=== PATIENT | male | born 1960 | race Caucasian/White ===

== ENCOUNTER 2019-06-04 05:34 | Emergency (ER) | payer MEDICARE, OTHER ==
[2019-06-04] MEDS ORDERED: MORPHINE SULFATE 4 MG/ML SYRINGE IM STA (06:15)
[2019-06-04 06:18] VITALS: RESP 18
--- NOTE | 2019-06-04 06:21 | ED ---
General Adult HPI - General Chief complaint: Fall Stated complaint: Fall Time Seen by Provider: 06/04/19 06:03 Source: patient, RN notes reviewed Mode of arrival: ambulatory Limitations: no limitations - History of Present Illness Initial comments: 59-year-old male with a past medical history of hypertension, [place], CABG in 2013 currently on Plavix presents to the emergency department for a chief complaint of fall. Patient states yesterday he was walking to his house when he tripped over his shoe and fell into a table. Patient states the left side of his ribs hit the table. Patient did not have any lightheadedness or loss of consciousness prior to this fall. Denies any head injury or loss of consciousness after the fall. Patient states his pain is in the left anterior lower ribs. States it is very painful to move as well as take a deep breath. He denies any abdominal pain or any back pain. Patient denies any injury of the extremities or neck. Patient has no other complaints at this time including shortness of breath, chest pain, abdominal pain, nausea or vomiting, headache, or visual changes. - Related Data Home Medications Medication Instructions Recorded Confirmed Aspirin 325 mg PO DAILY 06/04/19 06/04/19 Vitamin E 180 mg PO DAILY 06/04/19 06/04/19 Previous Rx's Medication Instructions Recorded Lisinopril [Zestril] 2.5 mg PO DAILY #30 tab 02/09/14 Metoprolol Tartrate [Lopressor] 25 mg PO BID #60 tab 03/04/14 HYDROcodone/APAP 5-325MG [[place] 1 tab PO Q6HR PRN #12 tab 06/04/19 5-325] Lidocaine 5% Patch [Lidoderm 5% 1 patch TOPICAL DAILY PRN 5 Days 06/04/19 Patch] #5 patch Allergies Allergy/AdvReac Type Severity Reaction Status Date / Time FIBERGLASS Allergy Rash/Hives Uncoded 06/04/19 07:28 Review of Systems ROS Statement: Those systems with pertinent positive or pertinent negative responses have been documented in the HPI. ROS Other: All systems not noted in ROS Statement are negative. Past Medical History Past Medical History: Chest Pain / Angina, Hearing Disorder / Deafness, Hypertension, Myocardial Infarction ([place]) Additional Past Medical History / Comment(s): pt states " thought I had a panic attack in November but I guess I had a heart attack" RINGING IN LT EAR. Last Myocardial Infarction Date:: 11/2013 per pt History of Any Multi-Drug Resistant Organisms: None Reported Past Surgical History: Heart Catheterization Additional Past Surgical History / Comment(s): HEMORRHOIDECTOMY Past Anesthesia/Blood Transfusion Reactions: No Reported Reaction Past Psychological History: Depression, Panic Disorder Smoking Status: Current every day smoker Past Alcohol Use History: Daily Past Drug Use History: Marijuana - Past Family History Mother Family Medical History: Cancer Father Family Medical History: Myocardial Infarction ([place]) Brother(s) Family Medical History: Myocardial Infarction ([place]) Additional Family Medical History / Comment(s): 2 BROTHERS General Exam Limitations: no limitations General appearance: alert, in no apparent distress Head exam: Present: atraumatic, normocephalic, normal inspection Eye exam: Present: normal appearance, PERRL, EOMI. Absent: scleral icterus, conjunctival injection, periorbital swelling ENT exam: Present: normal exam, normal oropharynx, mucous membranes moist, TM's normal bilaterally, normal external ear exam Neck exam: Present: normal inspection, full ROM. Absent: tenderness, meningismus, lymphadenopathy Respiratory exam: Present: normal lung sounds bilaterally, chest wall tenderness (L anterior chest wall tenderness with small ecchymosis). Absent: respiratory distress, wheezes, rales, rhonchi, stridor Cardiovascular Exam: Present: regular rate, normal rhythm, normal heart sounds. Absent: systolic murmur, diastolic murmur, rubs, gallop, clicks GI/Abdominal exam: Present: soft, normal bowel sounds. Absent: distended, tenderness, guarding, rebound, rigid Neurological exam: Present: alert Course Vital Signs 06/04/19 06/04/19 06/04/19 05:44 06:17 07:03 Temperature 98.0 F 98.6 F 98.1 F Pulse Rate 118 H 103 H 88 Respiratory 20 18 18 Rate Blood Pressure 157/110 162/118 163/113 O2 Sat by Pulse 97 100 100 Oximetry Medical Decision Making - Medical Decision Making 59-year-old male presents for left rib pain after mechanical fall last night. Patient fell onto a table. Patient did not hit his head. Patient is hypertensive here in the emergency department however did not take his morning medication of lisinopril and metoprolol. These were given to him. Heart rate did improve throughout stay with pain treatment as well as metoprolol. On exam patient does have left anterior lower rib tenderness. X-ray of the left ribs with chest x-ray shows multiple left sided acute rib fractures of the sixth seventh and eighth ribs. No significant displacement. Patient is given pain medication. Discussed monitoring for symptoms of pneumonia and incentive spirometer given. Patient does not think he will be able to go to the pharmacy until tomorrow so will be given a Tylenol 3 starter pack. He will follow up with primary care in 1-2 days or return here if he has any worsening symptoms. I discussed this case with attending Dr. Piper who agrees with this assessment and treatment plan. Disposition Clinical Impression: Ribs, multiple fractures Disposition: HOME SELF-CARE Condition: Good Instructions (If sedation given, give patient instructions): Rib Fracture (ED) Additional Instructions: Please take Motrin and either Tylenol 3 or [place] for pain. Use incentives spirometer 10 times every hour. Use pillows splinting technique as discussed. Follow up with primary care in 1-2 days. Return to the emergency department if you have any worsening symptoms. Prescriptions: Lidocaine 5% Patch [Lidoderm 5% Patch] 1 patch TOPICAL DAILY PRN 5 Days #5 patch PRN Reason: Pain HYDROcodone/APAP 5-325MG [[place] 5-325] 1 tab PO Q6HR PRN #12 tab PRN Reason: Pain Is patient prescribed a controlled substance at d/c from ED?: Yes When asked, does pt state using other controlled substances?: No If prescribed controlled substance>3 days was MAPS reviewed?: Prescribed <3 Days If opioid is for acute pain is fill amount 7 days or less?: Yes If Rx opioid, was Start Talking consent form obtained?: Yes Referrals: Debbie Arnold MD [Primary Care Provider] - 1-2 days Time of Disposition: 07:52
[2019-06-04] MEDS ORDERED: METOPROLOL TARTRATE 25 MG TAB PO STA (06:40)
--- NOTE | 2019-06-04 06:46 | XR ---
EXAMINATION TYPE: XR ribs LT w pa chest xray DATE OF EXAM: 06/04/2019 COMPARISON: 03/04/2014 HISTORY: Rib pain TECHNIQUE: 5 views FINDINGS: Heart size is normal. There are sternal wires. There is a mild infiltrate at the lateral le ft lung base. There is no pneumothorax. There are fractures of the anterior left sixth and seventh an d eighth ribs. No significant displacement. Right lung is clear. There is very slight blunting left c ostophrenic angle. IMPRESSION: There is decreased left pleural fluid compared to old exam. Multiple lateral left side ac [place] rib fractures. No pneumothorax. No heart failure.
[2019-06-04 07:05] VITALS: TEMP 98.1
[2019-06-04] MEDS ORDERED: KETOROLAC 30 MG/ML 1 ML VIAL IM STA (07:45)
[2019-06-04 07:56] VITALS: BP 151/114; PULSE 68
[2019-06-04] MEDS ORDERED: ACET/COD 300 MG/30 MG STARTER PACK 6 TAB BTL PO STA (07:57)
[2019-06-04] MEDS ORDERED: IBUPROFEN 600 MG STARTER PACK 4 TAB BTL PO STA (07:57)
== END 2019-06-04 08:24 | disposition home or self-care (01) ==
LOC: EC 05:34
DX: S22.42XA Multiple fractures of ribs, left side, initial encounter for closed fracture (principal); I10 Essential (primary) hypertension; I25.2 Old myocardial infarction; F17.200 Nicotine dependence, unspecified, uncomplicated; Z79.82 Long term (current) use of aspirin; Z79.02 Long term (current) use of antithrombotics/antiplatelets; Z91.09 Other allergy status, other than to drugs and biological substances; Z95.1 Presence of aortocoronary bypass graft; W01.0XXA Fall on same level from slipping, tripping and stumbling without subsequent striking against object, initial encounter; Y93.01 Activity, walking, marching and hiking
CPT/HCPCS: 71101; 99283; 96372 ×2; J2270; J1885

== ENCOUNTER 2021-08-17 19:57 | Emergency (ER) | payer MEDICARE, OTHER ==
[2021-08-17] MEDS ORDERED: TOPICAL SKIN ADHESIVE 1 EACH AMP TOPICAL ONE (20:17)
--- NOTE | 2021-08-17 20:17 | ED ---
Wound/Laceration HPI - General Stated Complaint: Laceration: Right Index Finger - History of Present Illness Initial Comments: Mega is a xjufg-zvjs-gclwzfar Ten presents to the emergency department today for evaluation of laceration to left index finger. Patient reports that he was doing dishes when a cup broke and cut his finger. Patient immediately applied pressure but he is on blood thinner so he had continuous bleeding and came to the ER. Patient's tetanus was updated earlier today at an outpatient pharmacy appointment. - Related Data Home Medications Medication Instructions Recorded Confirmed Aspirin 325 mg PO DAILY 06/04/19 06/04/19 Vitamin E 180 mg PO DAILY 06/04/19 06/04/19 Previous Rx's Medication Instructions Recorded lisinopriL [Zestril] 2.5 mg PO DAILY #30 tab 02/09/14 Metoprolol Tartrate [Lopressor] 25 mg PO BID #60 tab 03/04/14 HYDROcodone/APAP 5-325MG [[place] 1 tab PO Q6HR PRN #12 tab 06/04/19 5-325] Lidocaine 5% Patch [Lidoderm 5% 1 patch TOPICAL DAILY PRN 5 Days 06/04/19 Patch] #5 patch Allergies Allergy/AdvReac Type Severity Reaction Status Date / Time FIBERGLASS Allergy Rash/Hives Uncoded 06/04/19 07:28 Review of Systems ROS Statement: Those systems with pertinent positive or pertinent negative responses have been documented in the HPI. ROS Other: All systems not noted in ROS Statement are negative. Past Medical History Past Medical History: Chest Pain / Angina, Hearing Disorder / Deafness, Hyperte nsion, Myocardial Infarction ([place]) Additional Past Medical History / Comment(s): pt states " thought I had a panic attack in November but I guess I had a heart attack" RINGING IN LT EAR. Last Myocardial Infarction Date:: 11/2013 per pt History of Any Multi-Drug Resistant Organisms: None Reported Past Surgical History: Heart Catheterization Additional Past Surgical History / Comment(s): HEMORRHOIDECTOMY Past Anesthesia/Blood Transfusion Reactions: No Reported Reaction Past Psychological History: Depression, Panic Disorder Past Alcohol Use History: Daily Past Drug Use History: Marijuana - Past Family History Mother Family Medical History: Cancer Father Family Medical History: Myocardial Infarction ([place]) Brother(s) Family Medical History: Myocardial Infarction ([place]) Additional Family Medical History / Comment(s): 2 BROTHERS General Exam - General Exam Comments Initial Comments: Physical Exam GENERAL: Patient is well-developed and well-nourished. Patient is nontoxic and well-hydrated and is in no distress. HENT: Normocephalic, Atraumatic. EYES: PERRL, EOMI PULMONARY: Unlabored respirations. CARDIOVASCULAR: RRR Warm and well perfused extremities ABDOMEN: Non-distended SKIN: Superficial V-shaped laceration on the lateral surface of the index finger : Deferred NEUROLOGIC: Alert and oriented Normal speech Normal gait MUSCULOSKELETAL: Moving all extremities with no apparent injury PSYCHIATRIC: No SI/HI Procedures - Laceration Laceration #1 Consent Obtained: verbal consent Indication: laceration Site: hand Size (cm): 2 Description: flap (V shaped) Depth: simple, single layer Pre-repair: wound explored Type of Sutures: other (Skin glue) Patient Tolerated Procedure: well, no complications Medical Decision Making - Medical Decision Making Patient was seen and evaluated, history is obtained from patient, patient has a laceration to his finger he is on aspirin bleeding was controlled with laceration was skin glue. Patient is up-to-date on tetanus Patient discharged home in stable condition Disposition Clinical Impression: Finger laceration Disposition: HOME SELF-CARE Condition: Stable Instructions (If sedation given, give patient instructions): Skin Adhesive Care (ED) Is patient prescribed a controlled substance at d/c from ED?: No Referrals: Debbie Arnold MD [Primary Care Provider] - 1-2 days
[2021-08-17 20:24] VITALS: BP 139/86; PULSE 113; RESP 20; TEMP 98.9
== END 2021-08-17 20:31 | disposition home or self-care (01) ==
LOC: EC 19:57
DX: S61.210A Laceration without foreign body of right index finger without damage to nail, initial encounter (principal); I10 Essential (primary) hypertension; I25.2 Old myocardial infarction; Z79.82 Long term (current) use of aspirin; Z91.09 Other allergy status, other than to drugs and biological substances; W26.8XXA Contact with other sharp object(s), not elsewhere classified, initial encounter; Y93.G3 Activity, cooking and baking
CPT/HCPCS: 12011; 99282

== ENCOUNTER 2023-01-09 08:48 | Emergency (ER) | payer MEDICARE ==
[2023-01-09] MEDS ORDERED: PANTOPRAZOLE 40 MG TABLET PO STA (10:07)
--- NOTE | 2023-01-09 10:11 | ED ---
ENT HPI - General Chief complaint: ENT Stated complaint: throat pain, abd pain Time Seen by Provider: 01/09/23 09:19 Source: patient, RN notes reviewed Mode of arrival: ambulatory Limitations: no limitations - History of Present Illness Initial comments: Patient is a 62-year-old male presenting to the emergency room for complaints of sore throat and epigastric pain ongoing for approximately 4-5 days that began after copious amounts of vomiting following an episode of binge drinking. He reports that he has not had any alcohol intake or vomiting since his initial episode. He reports that he has utilize [id number] and acid of Pepto-Bismol to help treat his symptoms. He reports that the medication helps but that his throat pain returns. He does report that he does have trouble chewing his food and occasional trouble swallowing larger food particles due to lack of teeth. He denies any difficulty swallowing at this time. He denies any chest pain, shortness of breath, abdominal pain not related to heartburn symptoms, diarrhea, headache, dizziness, fevers or chills. He has a past medical history significant for CAD, hypertension, and hard of hearing. - Related Data Home Medications Medication Instructions Recorded Confirmed Aspirin 325 mg PO DAILY 06/04/19 06/04/19 Vitamin E 180 mg PO DAILY 06/04/19 06/04/19 Previous Rx's Medication Instructions Recorded lisinopriL [Zestril] 2.5 mg PO DAILY #30 tab 02/09/14 Metoprolol Tartrate [Lopressor] 25 mg PO BID #60 tab 03/04/14 HYDROcodone/APAP 5-325MG [[place] 1 tab PO Q6HR PRN #12 tab 06/04/19 5-325] Lidocaine 5% Patch [Lidoderm 5% 1 patch TOPICAL DAILY PRN 5 Days 06/04/19 Patch] #5 patch Pantoprazole [Protonix] 40 mg PO DAILY 14 Days #14 tab 01/09/23 Allergies Allergy/AdvReac Type Severity Reaction Status Date / Time FIBERGLASS Allergy Rash/Hives Uncoded 01/09/23 09:05 Review of Systems ROS Statement: Those systems with pertinent positive or pertinent negative responses have been documented in the HPI. ROS Other: All systems not noted in ROS Statement are negative. Past Medical History Past Medical History: Chest Pain / Angina, Hearing Disorder / Deafness, Hypertension, Myocardial Infarction ([place]) Additional Past Medical History / Comment(s): pt states " thought I had a panic attack in November but I guess I had a heart attack" RINGING IN LT EAR. Last Myocardial Infarction Date:: 11/2013 per pt History of Any Multi-Drug Resistant Organisms: None Reported Past Surgical History: Heart Catheterization Additional Past Surgical History / Comment(s): HEMORRHOIDECTOMY Past Anesthesia/Blood Transfusion Reactions: No Reported Reaction Past Psychological History: Depression, Panic Disorder Past Alcohol Use History: Daily Past Drug Use History: Marijuana - Past Family History Mother Family Medical History: Cancer Father Family Medical History: Myocardial Infarction ([place]) Brother(s) Family Medical History: Myocardial Infarction ([place]) Additional Family Medical History / Comment(s): 2 BROTHERS General Exam Limitations: no limitations General appearance: alert, in no apparent distress Head exam: Present: atraumatic, normocephalic, normal inspection Eye exam: Present: normal appearance, PERRL, EOMI. Absent: scleral icterus, conjunctival injection, periorbital swelling ENT exam: Present: normal external ear exam, other (Endentureless, diffuse erythema near without edema, tonsillar enlargement or tonsillar exudate) Neck exam: Present: normal inspection. Absent: tenderness, meningismus, lymphadenopathy Respiratory exam: Present: normal lung sounds bilaterally. Absent: respiratory distress, wheezes, rales, rhonchi, stridor Cardiovascular Exam: Present: normal rhythm, tachycardia, normal heart sounds. Absent: systolic murmur, diastolic murmur, rubs, gallop GI/Abdominal exam: Present: soft, normal bowel sounds. Absent: distended, tenderness, guarding, rebound, rigid Rectal exam: Present: deferred Extremities exam: Present: normal inspection. Absent: pedal edema, joint swelling Back exam: Present: normal inspection Neurological exam: Present: alert, oriented X3, CN II-XII intact Psychiatric exam: Present: normal affect, normal mood Skin exam: Present: warm, dry, intact, normal color. Absent: rash Course Vital Signs 01/09/23 01/09/23 09:02 10:27 Temperature 98.5 F 98.4 F Pulse Rate 125 H 127 H Respiratory 18 16 Rate Blood Pressure 124/87 113/86 O2 Sat by Pulse 97 100 Oximetry Medical Decision Making - Medical Decision Making Was pt. sent in by a medical professional or institution (Dr., PA, METER TESTER, urgent care, hospital, or halfway...) When possible be specific @ -No Did you speak to anyone other than the patient for history (EMS, parent, family, police, friend...)? What history was obtained from this source @ -No Did you review nursing and triage notes (agree or disagree)? Why? @ -I reviewed and agree with nursing and triage notes Were old charts reviewed (outside hosp., previous admission, EMS record, old EKG, old radiological studies, urgent care reports/EKG's, halfway records)? Report findings @ -No old charts were reviewed Differential Diagnosis (chest pain, altered mental status, abdominal pain women, abdominal pain men, vaginal bleeding, weakness, fever, dyspnea, syncope, headache, dizziness, GI bleed, back pain, seizure, CVA, palpatations, mental health, musculoskeletal)? @ -Differential Abdominal Pain Men: Appendicitis, cholecystitis, diverticulosis, ischemic bowel, pancreatitis, hepatitis, UTI, gastroenteritis, AAA, incarcerated hernia, bowel obstruction, constipation, inflammatory bowel, hepatitis, peptic ulcer disease, splenic infarction, perforated viscus, testicular torsion, this is not meant to be an all-inclusive list EKG interpreted by me (3pts min.). @ -None done X-rays interpreted by me (1pt min.). @ -None done CT interpreted by me (1pt min.). @ -None done U/S interpreted by me (1pt. min.). @ -None done What testing was considered but not performed or refused? (CT, X-rays, U/S, labs)? Why? @ -None What meds were considered but not given or refused? Why? @ -None Did you discuss the management of the patient with other professionals (professionals i.e. PHANI Gottlieb, METER TESTER, lab, RT, psych nurse, licensed social worker, clubhouse attendant, teacher, electoral officer, mattress spring encaser)? Give summary @ -No Was smoking cessation discussed for >3mins.? @ -No Was critical care preformed (if so, how long)? @ -No Were there social determinants of health that impacted care today? How? (Homelessness, low income, unemployed, alcoholism, drug addiction, tr ansportation, low edu. Level, literacy, decrease access to med. care, alf, rehab)? @ -No Was there de-escalation of care discussed even if they declined (Discuss DNR or withdrawal of care, Hospice)? DNR status @ -No What co-morbidities impacted this encounter? (DM, HTN, Smoking, COPD, CAD, Cancer, CVA, ARF, Chemo, Hep., AIDS, mental health diagnosis, sleep apnea, morbid obesity)? @ -None Was patient admitted / discharged? Hospital course, mention meds given and route, prescriptions, significant lab abnormalities, going to OR and other pertinent info. @ -62-year-old male presenting to the emergency room with complaints of sore throat and epigastric pain which began after vomiting. Symptoms improved with [id number]-skw-ixovddq antacids but returned. Tachycardia also noted. No indication for diagnostic imaging or laboratory studies at this time. Will give IV fluid bolus of 1 L and morning blood pressure/heart rate medications and monitor response. Will also treat with Protonix for GERD. Heart rate improved after IV fluids and morning medications. No episodes of vomiting. Epigastric and sore throat pain 1 out of 10. Diagnosis and treatment recommendations reviewed with patient at length. Will place patient on PPI 2 weeks and advise follow-up with primary care provider. advised utilizing chemical blender to aspirate food if unable to obtain dentures to prevent injury to esophagus. Advised avoidance of spicy foods, highly acidic foods and alcohol. Will discharge home in stable condition on Protonix to treat GERD advising follow-up with primary care provider. Undiagnosed new problem with uncertain prognosis? @ -No Drug Therapy requiring intensive monitoring for toxicity (Heparin, Nitro, Insulin, Cardizem)? @ -No Were any procedures done? @ -No Diagnosis/symptom? @ -GERD Acute, or Chronic, or Acute on Chronic? @ -Acute on chronic Uncomplicated (without systemic symptoms) or Complicated (systemic symptoms)? @ -Uncomplicated Side effects of treatment? @ -No Exacerbation, Progression, or Severe Exacerbation? @ -No Poses a threat to life or bodily function? How? (Chest pain, USA, CT, pneumonia, PE, COPD, DKA, ARF, appy, cholecystitis, CVA, Diverticulitis, Homicidal, Suicidal, threat to staff... and all critical care pts) @ -No Case discussed with Dr. Segovia. Disposition Clinical Impression: GERD (gastroesophageal reflux disease) Disposition: HOME SELF-CARE Condition: Stable Instructions (If sedation given, give patient instructions): Diet for Stomach Ulcers and Gastritis (ED), GERD (Gastroesophageal Reflux Disease) (ED) Additional Instructions: Complete course of Protonix as present prescribed. Utilizing chemical blender to macerate your food is encouraged to avoid esophageal damage if unable to obtain dentures . Avoid acidic foods, spicy foods and alcohol intake. Please follow-up with your primary care provider. Please return to the Emergency Department if symptoms worsen or any other concerns. Prescriptions: Pantoprazole [Protonix] 40 mg PO DAILY 14 Days #14 tab Is patient prescribed a controlled substance at d/c from ED?: No Referrals: Debbie Arnold MD [Primary Care Provider] - 1-2 days Time of Disposition: 10:09
[2023-01-09 10:28] VITALS: RESP 16
[2023-01-09] MEDS ORDERED: SODIUM CHLORIDE 0.9% 1,000 ML IV STA (10:34)
[2023-01-09 11:36] VITALS: PULSE 77
[2023-01-09 12:12] VITALS: BP 139/82; TEMP 97.9
== END 2023-01-09 12:12 | disposition home or self-care (01) ==
LOC: EC 08:48
DX: K21.9 Gastro-esophageal reflux disease without esophagitis (principal); I10 Essential (primary) hypertension; I25.2 Old myocardial infarction; F12.90 Cannabis use, unspecified, uncomplicated; Z79.82 Long term (current) use of aspirin; Z91.09 Other allergy status, other than to drugs and biological substances
CPT/HCPCS: 96360; 99283

== ENCOUNTER → 2023-05-17 | Outpatient (CLI) | payer MEDICARE ==
--- NOTE | 2023-05-17 12:09 | XR ---
EXAMINATION TYPE: XR chest 2V DATE OF EXAM: 05/17/2023 COMPARISON: 03/04/2014 HISTORY: Protruding sternal wires TECHNIQUE: Frontal and lateral views of the chest are obtained. FINDINGS: There are sternal wires indicate prior sternotomy and CABG surgery. The lungs are clear of consolidative, interstitial or masslike density. There is no pleural effusion pleural thickening. Heart size normal. There is no pulmonary vascular congestion. The osseous structures are intact. IMPRESSION: Sternal wires and prior CABG surgery with no acute cardiopulmonary disease
== END | disposition home or self-care (01) ==
LOC: RADXRMAIN 10:32
PROVIDERS: ATTEND Surgery
DX: T81.89XD Other complications of procedures, not elsewhere classified, subsequent encounter (principal); Z95.1 Presence of aortocoronary bypass graft
CPT/HCPCS: 71046

== ENCOUNTER → 2023-05-31 | Outpatient (CLI) | payer MEDICARE ==
--- NOTE | 2023-06-01 09:56 | CT ---
EXAMINATION TYPE: CT chest wo con DATE OF EXAM: 05/31/2023 COMPARISON: None HISTORY: chest pain CT DLP: 166.5 mGycm. Automated Exposure Control for Dose Reduction was Utilized. TECHNIQUE: CT scan of the thorax is performed without IV contrast. FINDINGS: LUNGS: The lungs are grossly clear, there is no concerning parenchymal mass or nodule identified. T here is no pleural effusion or pneumothorax seen. The tracheobronchial tree is patent. Diffuse emphy sematous changes. Areas of interlobular septal thickening suggesting mild interstitial chronic lung d isease. There are subpleural micronodules measuring less than 3 mm which have a benign appearance. MEDIASTINUM: Lack of IV contrast is noted to limit evaluation for mediastinal and especially hilar ad enopathy. There are no definitive greater than 1 cm hilar or mediastinal lymph nodes. No cardiomega ly or pericardial effusion is seen. Median sternotomy changes are seen. There is no abnormal surround ing soft tissue laboratory changes or collection. Extensive coronary artery calcification. Atheroscle rotic change aorta. OTHER: 2 mm punctate calcification left kidney. There is a moderate hiatal hernia with esophageal wal l thickening correlating reflux esophagitis. Trace a clinical mass tear. IMPRESSION: 1. Diffuse emphysematous changes. 2. Post median sternotomy. No abnormal fluid accumulation or destructive changes seen adjacent to the sternotomy wires. 3. Nonobstructing 2 mm left renal calculus. 4. Moderate hiatal hernia correlate for reflux esophagitis.
== END | disposition home or self-care (01) ==
LOC: RADCTMAIN 17:10
PROVIDERS: ATTEND Thoracic Surgery (Cardiothoracic Vascular Surgery)
DX: Z01.818 Encounter for other preprocedural examination (principal); I25.10 Atherosclerotic heart disease of native coronary artery without angina pectoris; J43.9 Emphysema, unspecified; K44.9 Diaphragmatic hernia without obstruction or gangrene; N20.0 Calculus of kidney; R22.2 Localized swelling, mass and lump, trunk; Z98.890 Other specified postprocedural states
CPT/HCPCS: 71250

== ENCOUNTER 2023-06-09 07:51 | Day surgery (SDC) | payer MEDICARE ==
[~2023-06-09 07:51] MED LIST: DEXAMETHASONE SOD PHOSPHATE 4 MG/ML 1 ML VIAL IV ONE; HYDROmorphone 0.5 MG/0.5 ML SYRINGE IVP PRN; LACTATED RINGERS 1,000 ML IV SCH; MIDAZOLAM 2 MG/2 ML VIAL IV PRN; ONDANSETRON 4 MG/2 ML VIAL IVP ONE; SCOPOLAMINE 1 MG/72 HR PATCH TRANSDERM ONE
[2023-06-09 08:19] VITALS: RESP 16; TEMP 97.3
[2023-06-09 08:50] LABS: HGB 14.3 gm/dL (13.0-17.5); MCH 33.3 pg (25.0-35.0); MCHC 34.1 g/dL (31.0-37.0); MCV 97.8 fL (80.0-100.0); Mean Platelet Volume 7.2; Platelet Count 329 k/uL (150-450); RDW 12.6 % (11.5-15.5); WBC 10.5 k/uL (3.8-10.6)
[2023-06-09 09:02] LABS: ALT 27 U/L (4-49); AST 31 U/L (17-59); African American GFR (CKD) >90 (>60 ml/min/1.73 sqM); Albumin 4.5 g/dL (3.5-5.0); Alkaline Phosphatase 97 U/L (38-126); Anion Gap 16 mmol/L; Blood Urea Nitrogen 10 mg/dL (9-20); Carbon Dioxide 23 mmol/L (22-30); Chloride 100 mmol/L (98-107); Glucose 101 mg/dL (74-99); Non-African American GFR(CKD) 89 (>60 ml/min/1.73 sqM); Potassium 3.3 mmol/L (3.5-5.1); Sodium 139 mmol/L (137-145); Total Bilirubin 0.4 mg/dL (0.2-1.3); Total Protein 7.8 g/dL (6.3-8.2)
[2023-06-09] MEDS ORDERED: BUPIVACAINE (PF) 0.5% 30 ML VIAL SQ ONE ×2 (09:13)
[2023-06-09 10:09] VITALS: BP 152/82; PULSE 97
--- NOTE | 2023-07-13 07:33 | P.OP ---
Date of Procedure: 06/09/23 Preoperative Diagnosis: Sternal pain with recurrent abscess near first wire Postoperative Diagnosis: Same Procedure(s) Performed: Sternal wire removal Anesthesia: local Surgeon: Dylan Morel Estimated Blood Loss (ml): 10 Pathology: none sent Condition: stable Disposition: PACU Indications for Procedure: This patient is a 63 year-old male who had a CABG in the past who presented to the office with sternal pain near the top wire with recurrent abscess formation in the area. CT scan revealed the knot of the wire was lifted up. Operative Findings: Top wire with knot lifted up causing chronic abscess cavity in area. Description of Procedure: The patient was taken back to the operating room and placed in the supine position. He was not sedated. His chest was prepped and draped in the usual sterile fashion. Antibiotics were given and I infiltrated the skin near the top wire with 1% lidocaine. A 3cm incision was made and carried down to bone using electrocautery. The top wire was identified with knot turned up. It was cut and removed. The cavity was irrigated and wound closed in layers of vicryl and glue.
== END 2023-06-09 10:32 | disposition home or self-care (01) ==
LOC: OR 07:51
PROVIDERS: ATTEND Thoracic Surgery (Cardiothoracic Vascular Surgery)
DX: T82.6XXA Infection and inflammatory reaction due to cardiac valve prosthesis, initial encounter (principal); I25.10 Atherosclerotic heart disease of native coronary artery without angina pectoris; I25.2 Old myocardial infarction; I10 Essential (primary) hypertension; H91.90 Unspecified hearing loss, unspecified ear; Z79.82 Long term (current) use of aspirin; Z79.899 Other long term (current) drug therapy; Z95.1 Presence of aortocoronary bypass graft; Y83.8 Other surgical procedures as the cause of abnormal reaction of the patient, or of later complication, without mention of misadventure at the time of the procedure
CPT/HCPCS: 86900; 86901; 80053; 85027; 86850; 20680; J0690; J0665

== ENCOUNTER 2025-02-21 15:42 | Emergency (ER) | payer MEDICARE ==
--- NOTE | 2025-02-21 16:01 | ED ---
General Adult HPI - General Source: patient, RN notes reviewed Mode of arrival: ambulatory Limitations: no limitations <Delmer Wetzel - Last Filed: 02/21/25 15:59> <Napoleon Byrne - Last Filed: 02/27/25 18:13> - General Stated complaint: R hip pain, heartburn Time Seen by Provider: 02/21/25 15:49 - History of Present Illness Initial comments: Quick note 65-year-old male presents emergency department chief complaint of epigastric pain, heartburn. Patient states that pain is in his chest moving around. Patient states that he did drink quite heavily over the weekend. Patient states that he is a daily drinker. Complains of epigastric pain into his chest no headache currently. Patient also complains of right hip pain no trauma (Delmer Wetzel) 65-year-old male presenting with chief complaint of burning epigastric pain. Has been ongoing since the weekend when he drank quite heavily. Patient states he is not a daily drinker. He reports that the burning pain started in his upper abdomen and at times radiates up into his chest. States that it gets worse with lying flat or bending over. No nausea or vomiting. No difficulty breathing. She is also having some right hip pain. No injury or trauma. (Napoleon Byrne) - Related Data Home Medications Medication Instructions Recorded Confirmed Aspirin [Adult Low Dose Aspirin EC] 81 mg PO DAILY 06/02/23 06/09/23 Cholecalciferol [Vitamin D3 (25 25 mcg PO DAILY 06/02/23 06/09/23 Mcg = 1000 Iu)] Multivitamins, Thera [Multivitamin 1 tab PO DAILY 06/02/23 06/09/23 (formulary)] Trinidad-3 Fatty Acids [Trinidad-3] 1,000 mg PO DAILY 06/02/23 06/09/23 Previous Rx's Medication Instructions Recorded lisinopriL [Zestril] 2.5 mg PO DAILY #30 tab 02/09/14 Metoprolol Tartrate [Lopressor] 25 mg PO BID #60 tab 03/04/14 Acetaminophen Tab [Tylenol] 650 mg PO Q6H #90 tab 06/09/23 Omeprazole [PriLOSEC] 40 mg PO DAILY #20 cap 02/21/25 Allergies Allergy/AdvReac Type Severity Reaction Status Date / Time nickel AdvReac Rash/Hives Verified 06/09/23 08:12 FIBERGLASS Allergy Rash/Hives Uncoded 06/02/23 14:15 Review of Systems ROS Other: All systems not noted in ROS Statement are negative. <Delmer Wetzel - Last Filed: 02/21/25 15:59> ROS Other: All systems not noted in ROS Statement are negative. <Napoleon Byrne - Last Filed: 02/27/25 18:13> ROS Statement: Those systems with pertinent positive or pertinent negative responses have been documented in the HPI. Past Medical History Past Medical History: Chest Pain / Angina, Hearing Disorder / Deafness, Hypertension, Myocardial Infarction (MS) Additional Past Medical History / Comment(s): tinnitus Last Myocardial Infarction Date:: 11/2013 per pt History of Any Multi-Drug Resistant Organisms: None Reported Past Surgical History: Heart Catheterization Additional Past Surgical History / Comment(s): HEMORRHOIDECTOMY. 4 vessel CABG 2013 Past Anesthesia/Blood Transfusion Reactions: No Reported Reaction Past Psychological History: No Psychological Hx Reported Additional Psychological History / Comment(s): pt denies depression or panic attacks that were listed under history Smoking Status: Current every day smoker Past Alcohol Use History: Daily Additional Past Alcohol Use History / Comment(s): 4 BEERS DAILY PER THE PT Past Drug Use History: None Reported - Past Family History Mother Family Medical History: Cancer Father Family Medical History: Myocardial Infarction (MS) Brother(s) Family Medical History: Myocardial Infarction (MS) Additional Family Medical History / Comment(s): 2 BROTHERS <Delmer Wetzel - Last Filed: 02/21/25 15:59> General Exam <Delmer Wetzel - Last Filed: 02/21/25 15:59> Limitations: no limitations General appearance: alert, in no apparent distress Head exam: Present: atraumatic, normocephalic, normal inspection Eye exam: Present: normal appearance, EOMI Neck exam: Present: normal inspection. Absent: meningismus Respiratory exam: Present: normal lung sounds bilaterally. Absent: respiratory distress, wheezes, rales, rhonchi, stridor Cardiovascular Exam: Present: regular rate, normal rhythm, normal heart sounds. Absent: systolic murmur, diastolic murmur, rubs, gallop, clicks Neurological exam: Present: alert, oriented X3 Psychiatric exam: Present: normal affect, normal mood Skin exam: Present: warm, dry, normal color <Napoleon Byrne - Last Filed: 02/27/25 18:13> - General Exam Comments Initial Comments: Visual Physical Exam Vital signs reviewed General: Well-appearing, nontoxic, no acute distress. Head: Normocephalic, atraumatic Eyes: PERRLA, EOMI ENT: Airway patent Chest: Nonlabored breathing Skin: No visual rash, normal skin tone Neuro: Alert and oriented 3 Musculoskeletal: No gross abnormalities (Delmer Wetzel) Course Vital Signs 02/21/25 02/21/25 16:06 19:30 Temperature 98.9 F 98.1 F Pulse Rate 102 H 79 Respiratory 20 18 Rate Blood Pressure 135/85 131/79 O2 Sat by Pulse 99 99 Oximetry Medical Decision Making <Delmer Wetzel - Last Filed: 02/21/25 15:59> - Lab Data Result diagrams: 02/21/25 16:22 02/21/25 16:22 <Napoleon Byrne - Last Filed: 02/27/25 18:13> - Medical Decision Making Visual Physical Exam Vital signs reviewed General: Well-appearing, nontoxic, no acute distress. Head: Normocephalic, atraumatic Eyes: PERRLA, EOMI ENT: Airway patent Chest: Nonlabored breathing Skin: No visual rash, normal skin tone Neuro: Alert and oriented 3 Musculoskeletal: No gross abnormalities (Delmer Wetzel) Was pt. sent in by a medical professional or institution (, PA, DEHYDROGENATION CONVERTER OPERATOR, urgent care, hospital, or correction...) When possible be specific @ -No Did you speak to anyone other than the patient for history (EMS, parent, family, police, friend...)? What history was obtained from this source @ -No Did you review nursing and triage notes (agree or disagree)? Why? @ -I reviewed and agree with nursing and triage notes Were old charts reviewed (outside hosp., previous admission, EMS record, old EKG, old radiological studies, urgent care reports/EKG's, correction records)? Report findings @ -No old charts were reviewed Differential Diagnosis (chest pain, altered mental status, abdominal pain women, abdominal pain men, vaginal bleeding, weakness, fever, dyspnea, syncope, headache, dizziness, GI bleed, back pain, seizure, CVA, palpatations, mental health, musculoskeletal)? @ -[facility] Differential Abdominal Pain Men: Appendicitis, cholecystitis, diverticulosis, ischemic bowel, pancreatitis, hepatitis, UTI, gastroenteritis, AAA, incarcerated hernia, bowel obstruction, constipation, inflammatory bowel, hepatitis, peptic ulcer disease, splenic in farction, perforated viscus, testicular torsion... This is not meant to be an all-inclusive list EKG interpreted by me (3pts min.). @ -EKG shows sinus rhythm ventricular rate 97. NV interval 147. QRS 72. QT 329. QTc 384 no acute changes from previous EKG X-rays interpreted by me (1pt min.). @ -X-ray shows no acute fracture or dislocation. Degenerative changes of the bony pelvis and bilateral hips. CT interpreted by me (1pt min.). @ -None done U/S interpreted by me (1pt. min.). @ -None done What testing was considered but not performed or refused? (CT, X-rays, U/S, labs)? Why? @ -I offered admission and the patient declined What meds were considered but not given or refused? Why? @ -None Did you discuss the management of the patient with other professionals (professionals i.e. , PA, DEHYDROGENATION CONVERTER OPERATOR, lab, RT, psych nurse, sr. social media & mobile manager, polymerization engineer, teacher, commercial account officer, lining caser)? Give summary @ -No Was smoking cessation discussed for >3mins.? @ -No Was critical care preformed (if so, how long)? @ -No Were there social determinants of health that impacted care today? How? (Home lessness, low income, unemployed, alcoholism, drug addiction, transportation, low edu. Level, literacy, decrease access to med. care, correction, rehab)? @ -No Was there de-escalation of care discussed even if they declined (Discuss DNR or withdrawal of care, Hospice)? DNR status @ -No What co-morbidities impacted this encounter? (DM, HTN, Smoking, COPD, CAD, Cancer, CVA, ARF, Chemo, Hep., AIDS, mental health diagnosis, sleep apnea, morbid obesity)? @ -None Was patient admitted / discharged? Hospital course, mention meds given and route, prescriptions, significant lab abnormalities, going to OR and other pertinent info. @ -65-year-old male presenting with chief complaint of burning epigastric pain. Pain radiates into his chest at times. States it is worse when he lays down or when he bends over. Started after he was drinking. Workup was initiated by triage and patient was later placed in a room and evaluated by myself. Lab work shows no leukocytosis or anemia. Negative troponin. Lipase is WNL. Serum alcohol less than 10. Creatinine mildly elevated at 1.36. Patient was given a GI cocktail and on reassessment he does report improvement in his symptoms. He is also complaining of some hip pain, got an x-ray which showed no acute process educated on today's findings. I did offer the patient admission, the patient declined stating he would rather follow-up with his doctors. Follow-up with PCP. Report back to ER with any new or worsening symptoms. Discussed return parameters and answered all questions. Patient conveyed verbal understanding and agreed to the plan. I discussed this case in detail with my attending Dr. Cat Undiagnosed new problem with uncertain prognosis? @ -No Drug Therapy requiring intensive monitoring for toxicity (Heparin, Nitro, Insulin, Cardizem)? @ -No Were any procedures done? @ -No Diagnosis/symptom? @ -GERD, hip pain Acute, or Chronic, or Acute on Chronic? @ -Acute Uncomplicated (without systemic symptoms) or Complicated (systemic symptoms)? @ -Uncomplicated Side effects of treatment? @ -No Exacerbation, Progression, or Severe Exacerbation? @ -No (Napoleon Byrne) - Lab Data Lab Results 02/21/25 02/21/25 02/21/25 Range/Units 16:22 16:22 16:22 WBC 8.54 (4.50-10.00) 10*3/uL RBC 4.00 L (4.40-5.60) 10*6/uL Hgb 13.2 (13.0-17.0) g/dL Hct 38.4 L (39.6-50.0) % MCV 96.0 (80.0-97.0) fL MCH 33.0 H (27.0-32.0) pg MCHC 34.4 (32.0-37.0) g/dL Plt Count 366 (140-440) 10*3/uL MPV 9.0 L (9.5-12.2) fL Immature Gran % (Auto) 0.8 % Neutrophils % 48.3 % Lymphocytes % 30.6 % Monocytes % 17.0 % Eosinophils % 2.0 % Basophils % 1.3 % Immature Gran # 0.07 H (0.00-0.04) 10*3/uL Neutrophils # 4.13 (1.80-7.70) 10*3/uL Lymphocytes # 2.61 (0.90-5.00) 10*3/uL Monocytes # 1.45 H (0.20-1.00) 10*3/uL Eosinophils # 0.17 (0.04-0.35) 10*3/uL Basophils # 0.11 H (0.00-0.10) 10*3/uL Sodium 141 (137-145) mmol/L Potassium 4.6 (3.5-5.1) mmol/L Chloride 105 (98-107) mmol/L Carbon Dioxide 28 (22-30) mmol/L Anion Gap 8 mmol/L BUN 21 H (9-20) mg/dL Creatinine 1.36 H (0.66-1.25) mg/dL Est GFR (CKD-EPI)AfAm 63 (>60 ml/min/1.73 sqM) Est GFR (CKD-EPI)NonAf 54 (>60 ml/min/1.73 sqM) Glucose 107 H (74-99) mg/dL Calcium 10.4 H (8.4-10.2) mg/dL Magnesium 1.7 (1.6-2.3) mg/dL Total Bilirubin 0.5 (0.2-1.3) mg/dL AST 26 (17-59) U/L ALT 15 (4-49) U/L Alkaline Phosphatase 84 (38-126) U/L Troponin I <0.012 (0.000-0.034) ng/mL Total Protein 7.2 (6.3-8.2) g/dL Albumin 4.3 (3.5-5.0) g/dL Amylase 71 (30-110) U/L Lipase 109 (23-300) U/L Serum Alcohol <10 mg/dL Disposition <Delmer Wetzel - Last Filed: 02/21/25 15:59> Is patient prescribed a controlled substance at d/c from ED?: No Time of Disposition: 19:27 <Napoleon Byren - Last Filed: 02/27/25 18:13> Clinical Impression: GERD (gastroesophageal reflux disease), Hip pain Disposition: HOME SELF-CARE Condition: Good Instructions (If sedation given, give patient instructions): Diet for Stomach Ulcers and Gastritis (ED), GERD (Gastroesophageal Reflux Disease) (ED), Hip Pain (ED) Additional Instructions: Follow-up with PCP, GI, orthopedics. Report back to ER with any new or worsening symptoms. Prescriptions: Omeprazole [PriLOSEC] 40 mg PO DAILY #20 cap Referrals: None,Stated [Primary Care Provider] - 1-2 days Jostin Hall MD [Medical Doctor] - 1-2 days Tamra Mccallum MD [STAFF PHYSICIAN] - 1-2 days Forms: [facility] PCPs
[2025-02-21 16:33] LABS: Basophils # (A) 0.11 10*3/uL (0.00-0.10); Basophils % (A) 1.3 %; Eosinophils # (A) 0.17 10*3/uL (0.04-0.35); HCT 38.4 % (39.6-50.0); HGB 13.2 g/dL (13.0-17.0); Lymphocytes # (A) 2.61 10*3/uL (0.90-5.00); Lymphocytes % (A) 30.6 %; MCHC 34.4 g/dL (32.0-37.0); Monocytes # (A) 1.45 10*3/uL (0.20-1.00); Neutrophils # (A) 4.13 10*3/uL (1.80-7.70); Neutrophils % (A) 48.3 %; Platelet Count 366 10*3/uL (140-440); WBC 8.54 10*3/uL (4.50-10.00)
[2025-02-21 16:50] LABS: ALT 15 U/L (4-49); AST 26 U/L (17-59); African American GFR (CKD) 63 (>60 ml/min/1.73 sqM); Albumin 4.3 g/dL (3.5-5.0); Alcohol <10 mg/dL; Alkaline Phosphatase 84 U/L (38-126); Amylase 71 U/L (30-110); Anion Gap 8 mmol/L; Blood Urea Nitrogen 21 mg/dL (9-20); Calcium 10.4 mg/dL (8.4-10.2); Carbon Dioxide 28 mmol/L (22-30); Chloride 105 mmol/L (98-107); Glucose 107 mg/dL (74-99); Lipase 109 U/L (23-300); Magnesium 1.7 mg/dL (1.6-2.3); Non-African American GFR(CKD) 54 (>60 ml/min/1.73 sqM); Potassium 4.6 mmol/L (3.5-5.1); Sodium 141 mmol/L (137-145); Total Bilirubin 0.5 mg/dL (0.2-1.3); Total Protein 7.2 g/dL (6.3-8.2)
--- NOTE | 2025-02-21 18:25 | XR ---
EXAMINATION TYPE: XR Hip RT and AP Pelvis DATE OF EXAM: 02/21/2025 6:16 PM CLINICAL INDICATION:Male, 65 years old with history of pain; PHH, pain COMPARISON: None. TECHNIQUE: XR Hip RT and AP Pelvis; hip was examined in the frontal and lateral projections and a AP pelvis. FINDINGS: Degenerative changes of the visualized spine and bony pelvis. Minimal degenerative changes of the bilateral hips. No acute fracture or dislocation is present. Vascular sclerosis with phlebolit hs appreciated. IMPRESSION: No acute fracture or dislocation. Degenerative changes of the bony pelvis and bilateral hips. [facility], , 02/21/2025 6:23 PM
[2025-02-21] MEDS: FAMOTIDINE 20 MG/2 ML VIAL IV STA (18:40)
[2025-02-21] MEDS: MAG HYDROX/AL HYDROX/SIMETH 30 ML CUP PO STA (18:40)
[2025-02-21] MEDS: LIDOCAINE VISCOUS 2% 15 ML CUP PO ONE (18:40)
[2025-02-21 19:31] VITALS: BP 131/79; PULSE 79; RESP 18; TEMP 98.1
== END 2025-02-21 19:41 | disposition home or self-care (01) ==
LOC: EC 15:42
DX: K21.9 Gastro-esophageal reflux disease without esophagitis (principal); M25.551 Pain in right hip; F17.200 Nicotine dependence, unspecified, uncomplicated; Z88.8 Allergy status to other drugs, medicaments and biological substances
CPT/HCPCS: 36415; 93005; 80053; 82150; 83690; 83735; 84484; 85025; 80320; 73502; 99284; 96374; J1308